=== PATIENT | male | born 1995 | race Caucasian/White ===

== ENCOUNTER 2017-04-19 21:39 | Inpatient (IN) | payer BC ==
--- NOTE | ~2017-04-19 | A ---
[facility] Nutrition Therapy DATE: 04/21/17 Patient: CHEMO MAYBERRY Physician: ATTPRE Address: Amber MARY CARLOS Room/Bed: [address] [place] [address], Zip: [place] [address] Admit Date: 04/20/17 Date of : [birth year] Height: Weight: 120 54.43 NUTRITIONAL ASSESSMENT: REASON: LOW BMI DX: 27 Y.O. MALE ADMITTED FOR CHEST PAIN PMH: ASTHMA, HEADACHES Anthropometrics: 5'11" (PER PT), 120# ( 54.5 KG), BMI 16, 70%IBW Labs: WNL Meds: LIPITOR, ZESTRIL, LOVENOX, EFFIENT, TYLENOL, PERCOCET I/O & Bowel function: Skin Integrity: WNL Assessment: CHART REVIEWED, EVENTS NOTED. MR. MAYBERRY IS A 21 Y.O. MALE ADMITTED FOR CHEST PAIN. NO HEIGHT IN [facility], PT REPORTS HE IS 5'11". RD DOCTOR OF OPTOMETRY SPOKE WITH PT AT BEDSIDE. PT REPORTS NO WEIGHT LOSS, STABLE WEIGHT OF 120#. PT REPORTS HAVING A POOR APPETITE. PT REPORTS THAT HE WORKS NIGHTS, SO HE USUALLY SKIPS BREAKFAST AND GOES TO SLEEP WITHOUT EATING IMMEDIATLY AFTER WORK. WHEN HE DOES EAT, IT IS SEVERAL SMALL MEALS/SNACKS THROUGHOUT THE DAY. RD DOCTOR OF OPTOMETRY ENCOURAGED ADEQUATE INTAKE BY EATING SEVERAL SMALL MEALS A DAY AND DRINKING SUPPLEMENTS. RD PROVIDED WRITTEN AND VERBAL EDUCATION ON HEALTHY FOODS HIGH IN PROTEIN AND CALORIES THAT ARE HELPFUL TO GAIN WEIGHT. PT AGREED TO ENSURE TID WITH MEALS AND MAGIC CUP WITH DINNER. RD DOCTOR OF OPTOMETRY ADDRESSED SEVERAL QUESTIONS FROM THE PT ABOUT HEALTHY FOOD CHOICES. NO OTHER QUESTIONS AT THIS TIME. RD WILL REMAIN AVAILABLE. Dx: UNDERWEIGHT R/T POOR APPETITE AND PO INTAKE AEB BMI OF 16 AND 70% IBW. Intervention: 1. ENSURE SUPPLEMENTS TID 2. HEALTHY WEIGHT GAIN EDUCATION 3. HEALTHY HEART DIET Monitoring, Evaluation and Goals: 1. WEIGHT; PREVENT FURTHER UNINTENTIONAL WEIGHT LOSS, PROMOTE GRADUAL WEIGHT GAIN TOWARDS HEALTHY BMI 2. PO INTAKE; CONSUME/TOLERATE >50% OF MEALS AND SUPPLEMENTS Recommendations: 1. ENSURE STRAWBERRY TID + MAGIC CUP VANILLA WITH DINNER. [facility] Nutrition Therapy DATE: 04/21/17 Patient: CHEMO JAMBHAVESH Physician: ATTPRE Address: [address] [facility] Room/Bed: [address] [place] [address], Zip: [place] [address] Admit Date: 04/20/17 Date of : [birth year] Height: Weight: 120 54.43 2. ENCOURAGE ADEQUATE PO INTAKE 2' PT UNDERWEIGHT. CONSIDER CHANGING CURRENT DIET ORDER TO HIGH KCAL/HIGH PROTEIN RD WILL F/U PER PROTOCOL PT IS AT MILD/MODERATE NUTRITIONAL RISK. Respectfully, HUGO RODRIGUEZ, CRUSHER SCREEN REPAIRER KATINA RUIZ MS, RD, LD Food and Nutritional Services [facility] cc: client file
--- NOTE | ~2017-04-19 | EKG ---
PATIENT: CHEMO MAYBERRY UNIT #: [id number] Ventricular Rate: 53 BPM Atrial Rate: 53 BPM P-R Interval: 118 ms QRS Duration: 94 ms Q-T Interval: 418 ms QTC Calculation(Bezet): 392 ms P [place]: 30 degrees Calculated R [place]: -18 degrees Calculated T [place]: -16 degrees Diagnosis Line: Sinus bradycardia Diagnosis Line: Otherwise normal ECG Diagnosis Line: When compared with ECG of 20-APR-2017 08:21, Diagnosis Line: T wave inversion more evident in Inferior leads Diagnosis Line: Confirmed by SAAD MENDEZ MD ([id number]) on Diagnosis Line: 04/21/2017 9:18:34 PM INTERPRETING MD: COLBY
--- NOTE | ~2017-04-19 | EKG ---
PATIENT: CHEMO MAYBERRY UNIT #: [id number] Ventricular Rate: 56 BPM Atrial Rate: 56 BPM P-R Interval: 136 ms QRS Duration: 94 ms Q-T Interval: 402 ms QTC Calculation(Bezet): 387 ms P [place]: 53 degrees Calculated R [place]: -11 degrees Calculated T [place]: 20 degrees Diagnosis Line: Sinus bradycardia Diagnosis Line: Otherwise normal ECG Diagnosis Line: Diagnosis Line: Confirmed by SAAD MENDEZ MD ([id number]) on Diagnosis Line: 04/20/2017 5:53:35 PM Diagnosis Line: Also confirmed by SAAD MENDEZ MD ([id number]), Diagnosis Line: tape editor ZOE KINCAID ([id number]) on 04/21/2017 Diagnosis Line: 7:57:24 AM INTERPRETING : COLBY
--- NOTE | ~2017-04-19 | EKG ---
PATIENT: CHEMO MAYBERRY UNIT #: [id number] Ventricular Rate: 56 BPM Atrial Rate: 56 BPM P-R Interval: 136 ms QRS Duration: 94 ms Q-T Interval: 402 ms QTC Calculation(Bezet): 387 ms P [place]: 53 degrees Calculated R [place]: -11 degrees Calculated T [place]: 20 degrees Diagnosis Line: Sinus bradycardia Diagnosis Line: Otherwise normal ECG Diagnosis Line: Diagnosis Line: Confirmed by SAAD MENDEZ MD ([id number]) on Diagnosis Line: 04/20/2017 5:53:35 PM INTERPRETING MD: COLBY
--- NOTE | ~2017-04-19 | EKG ---
PATIENT: CHEMO MAYBERRY UNIT #: [id number] Ventricular Rate: 56 BPM Atrial Rate: 56 BPM P-R Interval: 124 ms QRS Duration: 94 ms Q-T Interval: 412 ms QTC Calculation(Bezet): 397 ms P [place]: 49 degrees Calculated R [place]: 6 degrees Calculated T [place]: 47 degrees Diagnosis Line: Sinus bradycardia Diagnosis Line: nonspecific repolarization changes Diagnosis Line: Borderline ECG Diagnosis Line: When compared with ECG of 20-APR-2017 02:33, Diagnosis Line: (unconfirmed) Diagnosis Line: No significant change was found Diagnosis Line: Confirmed by SAAD MENDEZ MD ([id number]) on Diagnosis Line: 04/20/2017 5:50:32 PM INTERPRETING MD: COLBY
--- NOTE | ~2017-04-19 | EKG ---
PATIENT: CHEMO MAYBERRY UNIT #: [id number] Ventricular Rate: 56 BPM Atrial Rate: 56 BPM P-R Interval: 124 ms QRS Duration: 94 ms Q-T Interval: 412 ms QTC Calculation(Bezet): 397 ms P [place]: 49 degrees Calculated R [place]: 6 degrees Calculated T [place]: 47 degrees Diagnosis Line: Sinus bradycardia Diagnosis Line: nonspecific repolarization changes Diagnosis Line: Borderline ECG Diagnosis Line: When compared with ECG of 20-APR-2017 02:33, Diagnosis Line: (unconfirmed) Diagnosis Line: No significant change was found Diagnosis Line: Confirmed by SAAD MENDEZ MD ([id number]) on Diagnosis Line: 04/20/2017 5:50:32 PM Diagnosis Line: Also confirmed by SAAD MENDEZ MD ([id number]), Diagnosis Line: editor managing newspaper ZOE KINCAID ([id number]) on 04/21/2017 Diagnosis Line: 8:06:01 AM INTERPRETING MD: COLBY
--- NOTE | ~2017-04-19 | DS ---
Unit #: [id number] #: [id number] Patient: CHEMO MAYBERRY [id number] [address] [place], [place] [address] [id number] MR#: [id number] NAME: CHEMO MAYBERRY ROOM: 572 Age: 21 Sex: M Admission Date: 04/20/2017 : 1995 Discharge Date: 04/22/2017 Attending Physician: Michelle Paez M.D. Primary Care Physician: Cali Hoyos M.D. DISCHARGE SUMMARY DISCHARGE DIAGNOSES 1. Acute inferior wall non-ST elevation myocardial infarction. 2. Status post cardiac catheterization 04/20/[address] Chavez at [facility] that reveals the following results: a) Left main normal. b) Left anterior descending artery normal. c) Circumflex artery large caliber dominant vessel with four marginal branches that are normal. PDA shows multiple plaque with a 99% stenosis mid segment with TRAM I to II flow. d) Right coronary artery normal. e) Ejection fraction of 50% with no mitral regurgitation or mural thrombus. 3. Status post percutaneous coronary intervention with drug-eluting stent to the mid PDA of the let circumflex artery. 4. 2D echocardiogram 04/20/2017, shows an ejection fraction of 50% to 55% with suspected patent foramen ovale. There is mild tricuspid regurgitation and right ventricular systolic pressure of 40 mmHg. 5. Mild pulmonary hypertension. 6. Nonsmoker. 7. Asymptomatic sinus bradycardia. DISCHARGE MEDICATIONS 1. Lipitor 20 mg q. h.s. 2. Lisinopril 5 mg daily. 3. Aspirin 81 mg daily. 4. Effient 10 mg daily. HOSPITAL COURSE This is a 21-year-old white male who has had no prior cardiac history or testing in the past. He reports no hypertension, hyperlipidemia or diabetes. He has never been a smoker. He presented to the emergency room with complaint of chest and jaw pain while laying in bed. He had associated dyspnea and palpitations. He came to the emergency room for evaluation where his electrocardiogram was concerning for acute pericarditis. Initial troponin was 0.08 but increased to 5.50 but peaked at 7.19. He was started on daily dose of aspirin. No beta magdi was started because of bradycardia. Lipid profile was obtained which found the patient to have good lipid levels. It was felt the patient should undergo cardiac catheterization to evaluate his coronary anatomy. He was found to have single vessel disease with multiple plaque up to 99% stenosis mid segment of the PDA of the left circumflex artery. The remaining arteries were normal. He was advised to undergo PCI of the PDA of the circumflex artery which he agreed. The 99% stenosis was reduced to 0% using a 2.25 x 12 mm Synergy drug-eluting stent. He was started on Unit #: [id number] #: [id number] Patient: CHEMO MAYBERRY and continued on aspirin. He was given ROMAN inhibitor and high intensity statin. His electrocardiogram the following day showed some slight T wave inversion in lead III and AVF. Echocardiogram found the patient to have normal left ventricular systolic function. PFO was suspected. There was mild pulmonary hypertension. He remained bradycardic throughout his stay but he was asymptomatic. He was allowed to ambulate in the hallway without any additional symptoms. His right radial site was healing well without hematoma or bruising. He is stable for discharge today. ASSESSMENT VITAL SIGNS: Blood pressure 101/62, heart rate 60, temperature 98.3. CHEST: Clear to auscultation. HEART: S1, S2. Regular rate and rhythm. No murmurs, rubs or clicks. ABDOMEN: Soft, nontender, with bowel sounds present. EXTREMITIES: Without leg edema. Right radial site without hematoma or bruising. 4+ pulse. DIAGNOSTIC STUDIES LABORATORY: Glucose 87, BUN 10, creatinine 0.7, sodium 140, potassium 4.1. Cholesterol 107, triglycerides 39, LDL 54, HDL 45, TSH 0.54. White count 5.1, hemoglobin 14.3, hematocrit 42.0, platelet count is 132. CARDIOVASCULAR: Electrocardiogram shows sinus bradycardia with T wave inversion in III and AVF. DISCHARGE INSTRUCTIONS 1. The patient will be discharged home today. 2. Follow up with Dr. Paez on 06/08/2017 at 12:30 p.m. 3. The patient will continue on dual antiplatelet therapy with aspirin and Effient for one year. This has been discussed with the patient not to discontinue the use of antiplatelet medications to prevent stent thrombosis, CVA, MO or . He understands. 4. No heavy lifting or exercise for one week. 5. May return to work on 05/04/2017 without restrictions. 6. Echo shows a question of PFO with an acute MO at age 21. MO could be secondary to a paradoxical embolus. 7. Should consider a BRYON at a later date to rule out right to left shunt or PFO. 8. The cost of Effient for the patient was affordable at $5.00. Dictated by... Catrachito Lundberg A.P.R.N. for Talon Chavez M.D. LIZY/lakshmi TD: 04/23/2017 12:46 JOB #: [id number] Unit #: [id number] #: [id number] Patient: CHEMO MAYBERRY DISCHARGE SUMMARY Page 1 of 1 X Catrachito Lundberg APRN X DISCHARGE SUMMARY
--- NOTE | ~2017-04-19 | HP ---
Unit #: [id number] #: [id number] Patient: CHEMO MAYBERRY [id number] [address] [place], [place] [address] [id number] E MR#: [id number] NAME: CHEMO MAYBERRY ROOM: Age: 21 Sex: M Admission Date: 04/19/2017 : 1995 Attending Physician: Jono Terry M.D. Primary Care Physician: Cali Hoyos M.D. HISTORY AND PHYSICAL HISTORY OF PRESENT ILLNESS This is a 21-year-old white male, new to our group, with no significant past medical history except for asthma and headaches. The patient is on no home medications, but does take an oral supplement from [facility] for weightlifting. He does have a family history of coronary artery disease. His father had a myocardial infarction in his 30s, but details are unavailable. There are no reports of hypertension, hyperlipidemia, diabetes mellitus or myocardial infarction. The patient is a lifetime nonsmoker. There are no reports of alcohol or illicit drug use. The patient presented to the hospital with complaints of chest pain and jaw pain. He states that he was lying in bed around 7 o'clock last night sleeping, when he woke up with complaints of pain in his jaw. The pain went into his chest. It was severe in intensity. He was slightly short of breath and felt his heart racing. There was no nausea, vomiting or diaphoresis. He attempted to get up and was somewhat lightheaded, but was able to lean up against the wall and did not pass out. The pain lasted for a couple of hours and again was severe in intensity. He has had a history of chest pain while working out at the gym, but felt that it was a muscle pain and did not seek any medical attention. In addition to these symptoms he has had some headache which are not new. He denies fever or chills or any recent illness. He has had some mild intermittent abdominal pain in the lower quadrants and diarrhea, but none currently. There are no reports of melena. He denies PND, orthopnea or lower extremity edema. In the emergency department initial EKG revealed no acute findings. Troponin was 0.08 followed by 0.38. Markers were obtained this morning and troponin went up to 5.50. CK is also elevated at 183. D-dimer was mildly elevated at 150. Renal function and CBC were normal. Urine toxicology was negative. Chest x-ray revealed no acute findings or evidence of congestive heart failure. He was placed on aspirin and nitroglycerin. He was admitted for further evaluation. PAST MEDICAL HISTORY 1. Asthma. 2. Migraines. 3. Denies hypertension, hyperlipidemia, diabetes mellitus, myocardial infarction, cerebrovascular accident. 4. Denies previous cardiac testing, such as stress test or cardiac catheterization. PAST SURGICAL HISTORY 1. Umbilical hernia repair as a child. 2. Eye surgery as a child. Unit #: [id number] #: [id number] Patient: CHEMO MAYBERRY SOCIAL HISTORY Denies alcohol or illicit drug use. Nonsmoker. The patient lives in a private residence. He is a lifetime nonsmoker. There are no reports of alcohol or illicit drug use. FAMILY HISTORY Positive family history of coronary artery disease. His father had a myocardial infarction in his 30s. Details are unavailable. ALLERGIES No known drug allergies. HOME MEDICATIONS None except for a supplement from [facility]. REVIEW OF SYSTEMS Ten point review of systems negative except for details noted above in history of present illness. PHYSICAL EXAMINATION GENERAL: This is a 22-year-old white male in no acute distress. VITALS: Temperature 97.2, pulse 57, blood pressure 112/55. SKIN: Warm and dry. NECK: Supple. No jugular venous distension. No hepatojugular reflux. No carotid bruits auscultated. LUNGS: Bilateral breath sounds have good air entry throughout lung bennett. Respirations even and unlabored. No rales, rhonchi or wheezes. HEART: S1 and S2. Regular rate and rhythm. No murmurs, rubs or gallops. ABDOMEN: Soft, nontender and nondistended. Positive bowel sounds auscultated all quadrants. No ascites noted. EXTREMITIES: Lower extremities have no pretibial pitting edema. Dorsalis pedis and posterior tibial pulses 2+. Capillary refill less than 3 seconds. DIAGNOSTIC STUDIES IMAGING: Chest x-ray reveals no acute findings. LABORATORY: White blood cell count 9.6, hemoglobin 13.3, hematocrit 45.4, platelets 154, sodium 137, potassium 4.0, chloride 102, CO2 29, BUN 17, creatinine 0.7, glucose 106, AST 22, ALT 19, alkaline phosphatase 87, CK 183, d-dimer 150, troponin 0.08, 0.38 and 5.50. Urine toxicology negative. CARDIOVASCULAR: Electrocardiogram reveals sinus rhythm with a ventricular rate of 56 beats per minute. Mild ST segment changes anterolateral, but no STEMI. QTC 402 msec. ASSESSMENT 1. Acute non-Q-wave myocardial infarction. Peak troponin 5.50. 2. Questionable acute pericarditis. 3. Asthma. 4. Migraines. 5. Family history of heart disease. 6. Nonsmoker. PLAN 1. The patient presented to the hospital with complaints of chest and jaw pain. He was admitted for further evaluation. Unit #: [id number] #: [id number] Patient: CHEMO MAYBERRY 2. Two-dimensional echocardiogram was obtained at the bedside and revealed a preliminary ejection fraction of 65% with normal valves and no evidence of pericardial fusion. 3. Fasting lipid profile and TSH have been ordered. 4. The patient's cardiac enzymes and EKG will be trended. We will also check hemoglobin A1c with a fasting glucose level of 106. 5. The patient has been advised to undergo a cardiac catheterization due to symptoms and elevated troponin. 6. If cardiac catheterization is normal, the patient would benefit from a CTA of the chest to rule out PE. Dictated by Magdalena Woody APRN for Chris Winters TD: 04/20/2017 11:29 JOB #: [id number] HISTORY AND PHYSICAL Page 1 of 1 X X HISTORY AND PHYSICAL
--- NOTE | ~2017-04-19 | CR63 ---
[facility] A Service of [facility] RADIOLOGY TEXT RESULTS PATIENT: CHEMO MAYBERRY LOCATION: [facility] : [birth year] UNIT #: [id number] AGE: [address]: Jono Terry MD SEX: M ORDER DR: [id number] [facility] [address] [place], [place] [address] [id number] E MR#: [id number] Acc #: [id number] NAME: CHEMO MAYBERRY : 1995 SEX: M STUDY DATE/TIME: 04/19/2017 23:11 UNIT: [facility] ROOM: STUDY DESCRIPTION: CR Chest 2 View Attending Physician: Jono Terry M.D. Ordering Physician: Phoenix Chandler M.D. Primary Care Physician: Cali Hoyos M.D. MEDICAL IMAGING REPORT This report is preliminary unless electronic signature is present EXAM PA and lateral chest INDICATION Chest pain for 2 hours. FINDINGS PA and lateral views of the chest were obtained. The heart size and vascularity are normal. The lungs are clear. The bones are unremarkable. IMPRESSION No active disease. Dictated by... Ritesh Giron M.D. THIS IS AN ELECTRONICALLY VERIFIED REPORT Ritesh Giron M.D. at 04/20/2017 12:39 PM YARON/marie TD: 04/20/2017 09:27 JOB #: [id number] MEDICAL IMAGING REPORT Page 1 of 1 COPY
[~2017-04-19 21:39] MED LIST: XANAX0.5 M1 PO
[2017-04-20 00:55] LABS: POC - CKMB 3.9 ng/mL (0.0-7.9); POC - TROPONIN 0.08 ng/mL (<=0.05)
[2017-04-20 00:56] LABS: BASOPHIL% 0.1 % (0-2.5); EOSINOPHIL% 0.1 % (0.0-7.0); HEMATOCRIT 45.4 % (38.0-50.0); HEMOGLOBIN 15.3 gm/dL (13.0-16.0); LYMPHOCYTE# 1.1 X10e3 (1.0-3.5); LYMPHOCYTE% 11.7 % (17.0-45.0); MEAN CELL VOLUME 103.4 FL (83-96); MEAN CORPUSCULAR HEMOGLOBIN 34.7 PG (28-34); MEAN CORPUSCULAR HGB CONC 33.6 g/dL (30-36); MEAN PLATELET VOLUME 8.1 FL (6.5-11.5); MONOCYTE# 0.6 X10e3 (0-1.0); MONOCYTE% 6.7 % (3.0-12.0); NEUTROPHIL# 7.8 X10e3 (1.5-7.1); NEUTROPHIL% 81.4 % (40-75); PLATELET COUNT 154 X10e3 (140-420); RED BLOOD COUNT 4.39 X10e (3.90-5.60); RED CELL DISTRIBUTION WIDTH 12.8 % (11.0-15.5); WHITE BLOOD COUNT 9.6 X10e3 (4.0-10.5)
[2017-04-20 00:58] LABS: DIFF IND NO
[2017-04-20 01:19] LABS: ALBUMIN SERUM 4.8 g/dL (3.5-5.0); BILIRUBIN, DIRECT 0.1 mg/dL (0.0-0.2); BILIRUBIN,INDIRECT 0.6 mg/dL (0.0-0.9); BILIRUBIN,TOTAL 0.7 mg/dL (0.2-2.0); BUN/CREATININE RATIO 24.28; CALCIUM SERUM 9.2 mg/dL (8.4-10.2); CREATININE SERUM 0.7 mg/dL (0.6-1.4); GLOM FILT RATE Estimated 135.9 mL/min (>60); PROTEIN TOTAL SERUM 7.5 g/dL (6.0-8.3)
[2017-04-20 02:29] LABS: POC - CKMB 7.2 ng/mL (0.0-7.9); POC - TROPONIN 0.38 ng/mL (<=0.05)
[2017-04-20 06:08] LABS: AMPHETAMINE NEG (NEG); BARBITURATES NEG (NEG); BENZODIAZEPINES NEG (NEG); COCAINE NEG (NEG); MARIJUANA NEG (NEG); OPIATES NEG (NEG); TRICYCLIC ANTIDEPRESSANTS NEG (NEG); U METHADONE NEG (NEG)
[2017-04-20 08:13] LABS: POC - CKMB 36.9 ng/mL (0.0-7.9); POC - TROPONIN 5.5 ng/mL (<=0.05)
[2017-04-20 11:14] LABS: CHOLESTEROL 135 mg/dL (0-200); HDL CHOLESTEROL 62 mg/dL (29-75); LDL CHOLESTEROL 65 mg/dL (-130); LDL/HDL RATIO 1 RATIO (0-4); TRIGLYCERIDES 42 mg/dL (10-160)
[2017-04-20 21:09] LABS: ANGIO %MB 11.2 % (0.0-4.0); ANGIO MB 57.8 ng/ml
[2017-04-21 04:19] LABS: HEMOGLOBIN 14.3 gm/dL (13.0-16.0); MEAN CELL VOLUME 102.8 FL (83-96); MEAN CORPUSCULAR HEMOGLOBIN 34.9 PG (28-34); MEAN CORPUSCULAR HGB CONC 33.9 g/dL (30-36); MEAN PLATELET VOLUME 7.4 FL (6.5-11.5); RED BLOOD COUNT 4.09 X10e (3.90-5.60); RED CELL DISTRIBUTION WIDTH 12.6 % (11.0-15.5); WHITE BLOOD COUNT 5.1 X10e3 (4.0-10.5)
[2017-04-21 04:43] LABS: BUN/CREATININE RATIO 14.28; CALCIUM SERUM 8.7 mg/dL (8.4-10.2); CREATININE SERUM 0.7 mg/dL (0.6-1.4); GLOM FILT RATE Estimated 135.9 mL/min (>60); POTASSIUM 4.1 mmol/L (3.5-5.1)
[2017-04-21 05:03] LABS: ANGIO %MB 9.2 % (0.0-4.0); ANGIO MB 38.3 ng/ml
[2017-04-22] MEDS ORDERED: LIPITOR20 MG PO (14:30)
[2017-04-22] MEDS ORDERED: ZESTRIL5 MG PO (14:33)
[2017-04-22] MEDS ORDERED: ASPIRIN81 MG PO (14:34)
[2017-04-22] MEDS ORDERED: EFFIENT10 MG PO (14:35)
[2017-04-22] MEDS ORDERED: LISINOPRIL20 MG PO (14:44)
== END 2017-04-22 15:41 | disposition home or self-care (01) | DRG 247 ==
LOC: CED 21:39 → C5C 04-20 09:15 → CEDOF 04-20 09:15 → C5C 04-20 09:15 → CED 04-20 10:25 → CEDOF 04-20 10:25 → C5C 04-20 10:25 → CEDOF 04-20 13:22 → C5C 04-20 13:22
PROVIDERS: Emergency Medicine; Internal Medicine Cardiovascular Disease; Physician Assistant
PROC: 4A023N7 Measurement of Cardiac Sampling and Pressure, Left Heart, Percutaneous Approach (ICD-10-PCS; principal; 2017-04-20)
PROC: 027034Z Dilation of Coronary Artery, One Artery with Drug-eluting Intraluminal Device, Percutaneous Approach (ICD-10-PCS; 2017-04-20)
PROC: B211YZZ Fluoroscopy of Multiple Coronary Arteries using Other Contrast (ICD-10-PCS; 2017-04-20)
PROC: B215YZZ Fluoroscopy of Left Heart using Other Contrast (ICD-10-PCS; 2017-04-20)
PROC: B24BYZZ Ultrasonography of Heart with Aorta using Other Contrast (ICD-10-PCS; 2017-04-20)
DX: I21.4 Non-ST elevation (NSTEMI) myocardial infarction (principal); I27.2 Other secondary pulmonary hypertension; Q21.1 Atrial septal defect; Z68.1 Body mass index [BMI] 19.9 or less, adult; I25.10 Atherosclerotic heart disease of native coronary artery without angina pectoris; I07.1 Rheumatic tricuspid insufficiency; R00.1 Bradycardia, unspecified; J45.909 Unspecified asthma, uncomplicated; G43.909 Migraine, unspecified, not intractable, without status migrainosus; Z82.49 Family history of ischemic heart disease and other diseases of the circulatory system; R63.6 Underweight
CPT/HCPCS: 36415; 71020; 80048; 80061; 80076; 80307; 82550; 82553; 84443; 84484; 85025; 85027; 85347; 85379; 93005; 93306; 96361; 96374; 96375; 99285; C1725; C1769; C1874; C1887; C1894; J0153; J1644; J1650; J1885; J2250; J2405; J3010